=== PATIENT | female | born 1985 ===

== ENCOUNTER 2018-08-18 17:53 | Emergency (ER) | payer SELFPAY ==
[2018-08-18 18:06] VITALS: O2SAT 100
[2018-08-18] MEDS ORDERED: Sodium Chloride 0.9% 1,000 ML IV ONE (18:22)
--- NOTE | 2018-08-18 18:48 | C.PDOC ---
History Of Present Illness 33 y/o female comes in to ED complaining of epigastric abdominal pain x1 day, associated with nausea and constipation. Denies vomiting, fever, chills, chest pain, or SOB. Patient has no other complaints at this time. Time Seen by Provider: 08/18/18 18:09 Chief Complaint (Nursing): Abdominal Pain History Per: Patient History/Exam Limitations: no limitations Onset/Duration Of Symptoms: Days Current Symptoms Are (Timing): Still Present Past Medical History Reviewed: Historical Data, Nursing Documentation, Vital Signs Vital Signs: Last Vital Signs Temp 97.9 F 08/18/18 18:01 Pulse 69 08/18/18 18:01 Resp 19 08/18/18 18:01 BP 136/85 08/18/18 18:01 Pulse Ox 100 08/18/18 18:01 Family History: States: No Known Family Hx - Social History Hx Alcohol Use: No Hx Substance Use: No Review Of Systems Except As Marked, All Systems Reviewed And Found Negative. Gastrointestinal: Positive for: Nausea, Abdominal Pain, Constipation Physical Exam - Physical Exam Appears: Non-toxic, No Acute Distress Skin: Normal Color, Warm, Dry Head: Atraumatic, Normacephalic Eye(s): bilateral: Normal Inspection, PERRL Oral Mucosa: Moist Neck: Supple Cardiovascular: Rhythm Regular, No Murmur Respiratory: Normal Breath Sounds, No Rales, No Rhonchi, No Wheezing Gastrointestinal/Abdominal: Soft, Tenderness (in epigastrium), No Guarding, No Rebound Extremity: No Pedal Edema Extremity: Bilateral: Atraumatic, Normal Color And Temperature, Normal ROM ED Course And Treatment - Laboratory Results Result Diagrams: 08/18/18 18:55 08/18/18 18:55 O2 Sat by Pulse Oximetry: 100 (RA) Pulse Ox Interpretation: Normal Medical Decision Making Medical Decision Making: Impression: Abdominal Pain Plan: --Labs --UA --Pepcid 20 mg IV --IV fluids 1L --Toradol 30 mg IV --Zofran 4 mg IV --POC --Obstructive Series XR patient states improvement. NO more pain. Will discharge home to follow up with pmd within 2 days. Disposition Counseled Patient/Family Regarding: Studies Performed, Diagnosis, Need For Followup, Rx Given - Disposition Referrals: [facility] [Outside] Disposition: HOME/ ROUTINE Disposition Time: 19:34 Condition: STABLE Additional Instructions: follow up with your doctor within 2 days call to make an appointment take medications as prescribed return to ER if symptoms worsens or progress Prescriptions: Famotidine [Pepcid] 20 mg PO BID #20 tab Ondansetron ODT [Zofran ODT] 4 mg PO TID PRN #12 odt PRN Reason: Nausea/Vomiting Instructions: Acute Abdomen (Belly Pain), Adult (DC) Forms: Gen Discharge Inst [place], [employer] Connect ([place]an) Print Language: VINCENTIAN - Clinical Impression Clinical Impression: Abdominal pain - Scribe Statement The provider has reviewed the documentation as recorded by the Ruth Mccray Provider Attestation: All medical record entries made by the Ruth were at my direction and personally dictated by me. I have reviewed the chart and agree that the record accurately reflects my personal performance of the history, physical exam, medical decision making, and the department course for this patient. I have also personally directed, reviewed, and agree with the discharge instructions and disposition.
[2018-08-18 18:59] LABS: BASO # 0.1 K/uL (0.0-0.2); BASO % 1.6 % (0.0-2.0); EOS # 0.3 K/uL (0.0-0.7); EOS % 3.4 % (0.0-4.0); HEMOGLOBIN 13.7 g/dL (11.0-18.0); LYMPH # 2.9 K/uL (1.0-4.3); MEAN CELL VOLUME 89.8 fL (80.0-99.0); MEAN CORPUSCULAR HEMOGLOBIN 29.1 pg (27.0-31.0); MEAN CORPUSCULAR HGB CONC 32.4 g/dL (33.0-37.0); MEAN PLATELET VOLUME 8.1 fL (7.2-11.7); MONO # 0.6 K/uL (0.0-0.8); NEUT # 4.6 K/uL (1.8-7.0); NRBC % 0.1 % (0.0-2.0); RBC 4.71 Mil/uL (3.80-5.90); RED CELL DISTRIBUTION WIDTH 12.8 % (11.5-14.5); WHITE BLOOD COUNT 8.5 K/uL (4.8-10.8)
[2018-08-18 19:00] LABS: SQUAMOUS EPITHIAL 2 /hpf (0-5); URINE BACTERIA RARE (<OCC); URINE BILIRUBIN NEGATIVE (NEGATIVE); URINE BLOOD NEGATIVE (NEGATIVE); URINE CLARITY Clear (Clear); URINE COLOR Straw (YELLOW); URINE GLUCOSE (UA) NORMAL (Normal); URINE LEUKOCYTE ESTERASE TRACE Leu/uL (Negative); URINE PROTEIN NEGATIVE (NEGATIVE); URINE UROBILINOGEN NORMAL mg/dL (0.2-1.0)
[2018-08-18] MEDS ORDERED: Sodium Chloride 0.9% 1,000 ML ONE (19:01)
[2018-08-18 19:17] LABS: ALB/GLOB RATIO 1.6 (1.0-2.1); ALBUMIN 4.5 g/dL (3.5-5.0); ALT/SGPT 28 U/L (9-52); AST/SGOT 25 U/L (14-36); BLOOD UREA NITROGEN 12 mg/dL (7-17); CALCIUM 8.8 mg/dl (8.6-10.4); GFR NON-AFRICAN AMERICAN > 60; LIPASE 78 U/L (23-300)
[2018-08-18 20:21] VITALS: BP 117/74; PULSE 60; RESP 18; TEMP 97.6
--- NOTE | 2018-08-19 13:03 | RAD ---
Abdomen four views HISTORY: Abdominal pain. COMPARISON: None available. Findings: Lung grier are clear. Bibasilar breast and nipple shadows. Moderate fecal retention in the colon. No evidence of gross obstruction. Calcified phleboliths in the pelvis. Impression: Moderate fecal retention in the colon.
== END 2018-08-18 20:21 | disposition home or self-care (01) ==
LOC: C.ER 17:53 → EDSEX 17:53 → C.ER 20:21
DX: R10.13 Epigastric pain (principal)
CPT/HCPCS: 74022; 80053; 81001; 81025; 83690; 85025; 96374; 96375; 99284; J1885; J2405; J7030